=== PATIENT | female | born 1955 | race Caucasian/White ===

== ENCOUNTER → 2016-05-05 | Outpatient (CLI) | payer BC ==
[~2016-05-05] MED LIST: ADVIL200 MG PO; ASPIRIN 81M81 MG/TA2 PO; B-12 100 MCG; BENADRYL25 M2 PO; BYDUREON P2 MG/0.65; CALCIUM CITRATE1 TA1 PO; CELEBREX 200MG200 MG PO; COREG12.5 MG PO; CRESTOR20 MG PO; DILAUDID 2MG TAB2 MG PO; FIBER0.52 GM PO; FLAX OIL1000 MG PO; FLEXERIL5 MG PO; FLONASE NASAL S16 GM NS; FOLIC ACID0.4 MG PO; GLUCOSAMINE & C1 CA1 PO; IFEREX 150150 MG PO; KLOR-CON M2020 MEQ PO; LIDODERM 5% PATC1 EA TP; NEURONTIN100 MG/CAP PO; NEXIUM 40MG40 MG PO; NIACIN1000 MG PO; NIZORAL CR 30GM TOP; NORCO 325 MG-7.1 TAB PO; NORVASC 5MG5 MG/TAB PO; PREMPRO 0.45 MG1 TAB PO; SAVELLA50 MG PO; SYNTHROID0.088 MG/T PO; TYLENOL 500MG500 MG PO; VITAMIN B100 CO1 TAB PO; VITAMIN D31000 I1 PO; VITAMIN E1000 U/CAP PO; VITAMINC1000TA; XARELTO10 MG PO
== END ==
LOC: COL.VAS 08:40
DX: C50.412 Malignant neoplasm of upper-outer quadrant of left female breast (principal)

== ENCOUNTER → 2016-07-14 | Outpatient (CLI) | payer BC | LOC: COL.VAS 07-11 08:00 | DX: C50.412 Malignant neoplasm of upper-outer quadrant of left female breast (principal); Z79.899 Other long term (current) drug therapy ==

== ENCOUNTER → 2016-10-13 | Outpatient (CLI) | payer BC | LOC: COL.VAS 13:15 | DX: Z79.899 Other long term (current) drug therapy (principal); C50.919 Malignant neoplasm of unspecified site of unspecified female breast ==

== ENCOUNTER → 2016-12-15 | Outpatient (CLI) | payer BC | LOC: COL.VAS 12:30 | DX: Z51.81 Encounter for therapeutic drug level monitoring (principal); C50.912 Malignant neoplasm of unspecified site of left female breast; I36.1 Nonrheumatic tricuspid (valve) insufficiency; Z79.899 Other long term (current) drug therapy ==

== ENCOUNTER → 2017-04-06 | Outpatient (CLI) | payer BC | LOC: MC.RAD 10:38 | DX: Z12.31 Encounter for screening mammogram for malignant neoplasm of breast (principal); Z85.3 Personal history of malignant neoplasm of breast; Z98.890 Other specified postprocedural states ==

== ENCOUNTER → 2017-10-07 | Outpatient (CLI) | payer BC | LOC: ZCOL.LAB 15:51 | DX: Z01.812 Encounter for preprocedural laboratory examination (principal); Z86.14 Personal history of Methicillin resistant Staphylococcus aureus infection ==

== ENCOUNTER → 2018-04-22 | Outpatient (CLI) | payer BC | LOC: MC.RAD 07:49 | DX: Z12.31 Encounter for screening mammogram for malignant neoplasm of breast (principal); C50.412 Malignant neoplasm of upper-outer quadrant of left female breast; Z98.890 Other specified postprocedural states ==

== ENCOUNTER → 2019-05-17 | Outpatient (CLI) | payer BC | LOC: MC.RAD 07:00 | DX: Z12.31 Encounter for screening mammogram for malignant neoplasm of breast (principal); Z98.82 Breast implant status; Z98.890 Other specified postprocedural states; Z92.3 Personal history of irradiation; Z85.3 Personal history of malignant neoplasm of breast ==

== ENCOUNTER → 2020-06-05 | Outpatient (CLI) | payer BC | LOC: MC.RAD 08:15 | DX: Z12.31 Encounter for screening mammogram for malignant neoplasm of breast (principal); Z98.890 Other specified postprocedural states; Z98.82 Breast implant status; Z92.3 Personal history of irradiation ==

== ENCOUNTER → 2021-06-06 | Outpatient (CLI) | payer MEDICARE, BC | LOC: COL.LAB 09:35 → MC.RAD 09:35 | DX: C50.412 Malignant neoplasm of upper-outer quadrant of left female breast (principal); Z90.12 Acquired absence of left breast and nipple ==

== ENCOUNTER → 2021-06-07 | Outpatient (CLI) | payer MEDICARE, BC | LOC: MC.RAD 14:44 | DX: C50.412 Malignant neoplasm of upper-outer quadrant of left female breast (principal) | CPT/HCPCS: A4648 ==

== ENCOUNTER → 2022-07-01 | Outpatient (CLI) | payer MEDICARE, BC | LOC: MC.RAD 09:04 | DX: Z12.31 Encounter for screening mammogram for malignant neoplasm of breast (principal); Z85.3 Personal history of malignant neoplasm of breast ==

== ENCOUNTER → 2023-05-28 | Outpatient (CLI) | payer MEDICARE, BC ==
[~2023-05-28] MED LIST changes: +Iohexol 300 - 100 ML VIAL IV ONE; +NS 100 ML IV SCH
== END ==
LOC: COL.RAD 07:55
DX: C50.412 Malignant neoplasm of upper-outer quadrant of left female breast (principal); Z98.890 Other specified postprocedural states
CPT/HCPCS: Q9967

== ENCOUNTER → 2023-07-03 | Outpatient (CLI) | payer MEDICARE, BC ==
[~2023-07-03] MED LIST changes: -Iohexol 300 - 100 ML VIAL IV ONE; -NS 100 ML IV SCH
== END ==
LOC: MC.RAD 09:00
DX: N63.24 Unspecified lump in the left breast, lower inner quadrant (principal); C50.412 Malignant neoplasm of upper-outer quadrant of left female breast

== ENCOUNTER → 2024-01-20 | Outpatient (CLI) | payer MEDICARE, BC | LOC: MHCPAIN 13:24 | DX: M47.816 Spondylosis without myelopathy or radiculopathy, lumbar region (principal); M48.061 Spinal stenosis, lumbar region without neurogenic claudication; D68.51 Activated protein C resistance; K50.90 Crohn's disease, unspecified, without complications; E03.9 Hypothyroidism, unspecified; Z85.3 Personal history of malignant neoplasm of breast; I10 Essential (primary) hypertension | CPT/HCPCS: G0463 ==